=== PATIENT | female | born 1985 | race Caucasian/White ===

== ENCOUNTER 2017-04-09 12:17 | Observation (INO) | payer BC ==
[2017-04-09] MEDS ORDERED: Sodium Chloride 0.9% 10 ML Syringe FLUSH PRN (13:03)
[2017-04-09] MEDS ORDERED: Morphine 2 MG/ML Syringe IVPUSH PRN (13:16)
[2017-04-09] MEDS ORDERED: Ondansetron 4 MG/2 ML SDV IVPUSH PRN (13:17)
[2017-04-09] MEDS ORDERED: Ibuprofen 600 MG Tab PO PRN (13:17)
--- NOTE | 2017-04-09 13:23 | PCM.LDHP ---
L&D History of Present Illness - General Date of Service: 04/09/17 Admit Problem/Dx: Patient Status Order with Admit Dx/Problem 04/09/17 13:03 Patient Status [ADT] Routine Admission Diagnosis/Problem Admission Diagnosis/Problem demise, greater than 22 weeks, antepartum Source of Information: Patient History Limitations: Reports: No Limitations - History of Present Illness Introduction:: Patient is a 32 y/o at 23 5/7 wks who presents with findings of demise. This has been complicated by lumbrosacral myelomenigocele, bilateral club feet, and large cerebral ventriculomegaly. Has seen MFM in regards to these findings. Otherwise has a history of for breech, CHTN, and hypothyroidism. Not noticing any abdominal pain or cramping. No vaginal bleeding - Related Data Allergies/Adverse Reactions: Allergies Allergy/AdvReac Type Severity Reaction Status Date / Time minocycline HCl AdvReac Vomiting Verified 09/28/14 11:28 [From Minocin] Home Medications: Home Meds Ibuprofen [Motrin] 800 mg PO TID PRN 09/28/14 [History] Levothyroxine [Synthroid] 50 mcg PO DAILY 09/28/14 [History] Progesterone,Micronized [Progesterone] 100 mg PO FR 09/28/14 [History] metFORMIN [Glucophage XR] 750 mg PO Q12H 09/28/14 [History] Cephalexin [Keflex] 500 mg PO Q6H #28 capsule 09/29/14 [Rx] Past Medical History Cardiovascular History: Reports: Hypertension [employer] History: Reports: Polycystic Ovaries, : 3 Para: 1 LMP (Approximate): Psychiatric History: Reports: Depression Endocrine/Metabolic History: Reports: Hypothyroidism - Past Surgical History HEENT Surgical History: Reports: Myringotomy w Tube(s), Oral Surgery, Tonsillectomy GI Surgical History: Reports: Cholecystectomy Female Surgical History: Reports: Section Social & Family History - Tobacco Use Smoking Status *Q: Former Smoker Years of Tobacco use: 10 Used Tobacco, but Quit: Yes Month Tobacco Last Used: 2012 - Alcohol Use Alcohol Use History: No Days Per Week of Alcohol Use: 0 - Recreational Drug Use Recreational Drug Use: No H&P Review of Systems - Review of Systems: Review Of Systems: See Below General: Reports: No Symptoms Pulmonary: Reports: No Symptoms Cardiovascular: Reports: No Symptoms Gastrointestinal: Reports: No Symptoms Genitourinary: Reports: No Symptoms Musculoskeletal: Reports: No Symptoms Psychiatric: Reports: Depression L&D Exam - Exam Exam: See Below - Vital Signs Weight: 121.563 kg - OB Specific Contraction Intensity: Irritability Movement: Not Appreciated Heart Tones: Not [place] - Rebolledo Score Rebolledo Score Cervix Position: Posterior Rebolledo Score Consistency: Medium Re[place]o Score Effacement: 0-30% Rebolledo Score Dilation: Closed Rebol[place]o Score 's Station: -3 Rebolledo Score Total: 1 - Exam General: Alert, Oriented, Cooperative Lungs: Clear to Auscultation, Normal Respiratory Effort Cardiovascular: Regular Rate, Regular Rhythm GI/Abdominal Exam: Soft, Non-Tender Genitourinary: Normal external exam Back Exam: Normal Inspection Extremities: Normal Inspection Skin: Warm, Dry, Intact - Problem List (1) 23 weeks gestation of SNOMED Code(s): 93816057 ICD Code: Z3A.23 - 23 WEEKS GESTATION OF Status: Acute Current Visit: Yes (2) myelomeningocele SNOMED Code(s): 506510931 ICD Code: Q05.9 - SPINA BIFIDA, UNSPECIFIED Status: Acute Current Visit: Yes (3) Cerebral ventriculomegaly of fetus SNOMED Code(s): 079843978, 945285647 ICD Code: [id number] - Status: Acute Current Visit: Yes (4) demise SNOMED Code(s): 077259968 ICD Code: TWZ7842 - Status: Acute Current Visit: Yes Problem List Initiated/Reviewed/Updated: Yes Orders Last 24hrs: Active Orders 24 hr Category Date Time Status Patient Status [ADT] Routine ADT 04/09/17 13:03 Ordered Peripheral IV Care [RC] . DIRECTED Care 04/09/17 13:10 Ordered Up ad Heena [RC] ASDIRECTED Care 04/09/17 13:03 Ordered Vaginal Exam [RC] PRN Care 04/09/17 13:03 Ordered Vital Signs [RC] PER UNIT ROUTINE Care 04/09/17 13:03 Ordered OB Ltd 1 or More Fetus [US] Routine Exams 04/09/17 12:58 Ordered Ibuprofen [Motrin] Med 04/09/17 13:17 Ordered 600 mg PO Q6H PRN Misoprostol [Cytotec] Med 04/09/17 13:15 Ordered 400 mcg VAG Q6H Morphine Med 04/09/17 13:16 Ordered 2 mg IVPUSH Q1H PRN Ondansetron [Zofran] Med 04/09/17 13:17 Ordered 4 mg IVPUSH Q8H PRN Sodium Chloride 0.9% [Saline Flush] Med 04/09/17 13:03 Ordered 10 ml FLUSH ASDIRECTED PRN Peripheral IV Insertion Adult [OM.PC] Routine Oth 04/09/17 13:03 Ordered Medication Orders Ibuprofen (Motrin) 600 mg PO Q6H PRN PRN Reason: Pain Misoprostol (Cytotec) 400 mcg VAG Q6H ARSEN[facility] Morphine Sulfate (Morphine) 2 mg IVPUSH Q1H PRN PRN Reason: Pain Ondansetron HCl (Zofran) 4 mg IVPUSH Q8H PRN PRN Reason: Nausea Sodium Chloride (Saline Flush) 10 ml FLUSH ASDIRECTED PRN PRN Reason: Keep Vein Open Assessment/Plan Comment:: 32 y/o at 23 5/7 wks presents for management of demise. Fetus with multiple known abnormalities. * Discussed IOL. Patient does have a history of , but given gestational age less than 28 weeks can be managed with cytotec. Will use Cytotec, 400 mg, q 6 hours. Will plan for buccal cytotec after delivery of baby girl to aid in delivery of placenta. She is aware of risks of if not able to induce vs D&C for retained placenta. * CBC and T&S * Pain management per her preference * Home medications of Zoloft and Synthroid ordered
[2017-04-09] MEDS: Misoprostol 200 MCG Tab VAG SCH ×2 (13:35→19:00)
[2017-04-09] MEDS ORDERED: Bupivacaine 0.25% 10 ML SDV ONE (14:00)
--- NOTE | 2017-04-09 14:44 | US ---
Limited obstetrical ultrasound: Multiple real-time images were obtained. Fetus is cephalic in presentation. Placenta is posterior. DMITRI is 10.5 cm. No heart activity is seen. Measurements correspond to a mean gestational age of 23 weeks 4 days Impression: 1. No heart activity compatible with demise. Diagnostic code #5 (Attending provider present at time of exam)
[2017-04-10] MEDS ORDERED: Promethazine 25 MG/ML SDV IM STA (00:57)
[2017-04-10] MEDS ORDERED: Acetaminophen/oxyCODONE 325-5 MG Tab PO PRN (00:58)
[2017-04-10] MEDS ORDERED: Lactated Ringers 2,000 ML ONE (01:08)
[2017-04-10] MEDS: Misoprostol 200 MCG Tab VAG SCH (01:20)
[2017-04-10] MEDS: Lactated Ringers 1,000 ML IV SCH ×3 (01:22→05:12)
[2017-04-10] MEDS ORDERED: fentaNYL 100 MCG/2 ML SDV EPIDUR PRN (01:28)
[2017-04-10] MEDS ORDERED: diphenhydrAMINE 50 MG/ML SDV IVPUSH PRN (01:28)
[2017-04-10] MEDS ORDERED: ePHEDrine 50 MG/ML SDV IVPUSH PRN (01:28)
[2017-04-10] MEDS ORDERED: Ondansetron 4 MG/2 ML SDV IVPUSH PRN (01:28)
[2017-04-10] MEDS ORDERED: Bupivacaine/fentaNYL/NS 100 ML Bag EPIDUR SCH (01:30)
--- NOTE | 2017-04-10 01:38 | PCM.PREANE ---
Preanesthetic Assessment - Anesthesia/Transfusion/Family Hx Anesthesia History: Prior Anesthesia Without Reaction Family History of Anesthesia Reaction: No Transfusion History: No Prior Transfusion(s) - Review of Systems General: No Symptoms Pulmonary: No Symptoms Cardiovascular: No Symptoms, Other (HTN) Gastrointestinal: Other (GERD) Neurological: No Symptoms Other: Reports: Thyroid Problems, Depression, Anxiety - Physical Assessment NPO Status Date: 04/10/17 NPO Status Time: 01:00 Pulse: 87 O2 Sat by Pulse Oximetry: 99 Respiratory Rate: 16 Blood Pressure: 154/65 Temperature: 36.7 C Vital Signs: Last Vital Signs Temp 36.7 C 04/09/17 20:31 Pulse 87 04/09/17 20:31 Resp 16 04/09/17 20:30 BP 154/65 H 04/09/17 20:31 Pulse Ox 99 04/09/17 20:31 Height: 1.63 m Weight: 121.563 kg ASA Class: 2 Mental Status: Alert & Oriented x3 Dentition: Reports: Normal Dentition ROM/Head Extension: Full Lungs: Clear to Auscultation, Normal Respiratory Effort Cardiovascular: Regular Rate, Regular Rhythm - Lab Values: Laboratory Last Values WBC 15.14 K/mm3 (3.98-10.04) H 04/09/17 14:03 RBC 3.64 M/mm3 (3.98-5.22) L 04/09/17 14:03 Hgb 10.7 gm/L (11.2-15.7) L 04/09/17 14:03 Hct 31.3 % (34.1-44.9) L 04/09/17 14:03 MCV 86.0 fl (79.4-94.8) 04/09/17 14:03 MCH 29.4 pg (25.6-32.2) 04/09/17 14:03 MCHC 34.2 g/dl (32.2-35.5) 04/09/17 14:03 RDW Std Deviation 48.0 fL (36.4-46.3) H 04/09/17 14:03 Plt Count 187 K/mm3 (182-369) 04/09/17 14:03 MPV 8.6 fl (9.4-12.3) L 04/09/17 14:03 Blood Type B POSITIVE 04/09/17 14:03 Gel Antibody Screen Negative 04/09/17 14:03 - Allergies Allergies/Adverse Reactions: Allergies Allergy/AdvReac Type Severity Reaction Status Date / Time minocycline HCl AdvReac Vomiting Verified 09/28/14 11:28 [From Minocin] - Blood Blood Available: No Product(s) Available: None - Anesthesia Plan Pre-Op Medication Ordered: None - Acknowledgements Anesthesia Type Planned: Epidural Pt an Appropriate Candidate for the Planned Anesthesia: Yes Alternatives and Risks of Anesthesia Discussed w Pt/Guardian: Yes Pt/Guardian Understands and Agrees with Anesthesia Plan: Yes PreAnesthesia Questionnaire Cardiovascular History: Reports: Hypertension [employer]RI[employer]ION History: Reports: Polycystic Ovaries, , Spontaneous Psychiatric History: Reports: Depression Endocrine/Metabolic History: Reports: Hypothyroidism - Past Surgical History HEENT Surgical History: Reports: Myringotomy w Tube(s), Oral Surgery, Tonsillectomy GI Surgical History: Reports: Cholecystectomy Female Surgical History: Reports: Section - SUBSTANCE USE Smoking Status *Q: Never Smoker Second Hand Smoke Exposure: No Days Per Week of Alcohol Use: 0 Recreational Drug Use History: No - HOME MEDS Home Medications: Home Meds Labetalol [Normodyne] 100 mg PO BID 04/09/17 [History] Levothyroxine 75 mcg PO ACBREAKFAST 04/09/17 [History] PNV95/Ferrous Fumarate/FA [ Vitamin Tablet] 1 each PO DAILY 04/09/17 [ History] Sertraline [Zoloft] 50 mg PO DAILY 04/09/17 [History] - CURRENT (IN HOUSE) MEDS Current Meds: Current Medications Diphenhydramine HCl (Benadryl) 25 mg IVPUSH Q6H PRN PRN Reason: Pruritis Ephedrine Sulfate (Ephedrine Sulfate) 5 mg IVPUSH ASDIRECTED PRN PRN Reason: Hypotension Fentanyl (Sublimaze) 100 mcg EPIDUR Q3H PRN PRN Reason: Pain Fentanyl/Bupivacaine HCl (Fentanyl/Bupivacaine/Ns 2 Mcg-0.125% 100 Ml) 100 ml EPIDUR ASDIRECTED [facility] Lactated Ringer's (Ringers, Lactated) 1,000 mls @ 125 mls/hr IV ASDIRECTED A[facility] Last Admin: 04/10/17 01:22 Dose: 125 mls/hr Ibuprofen (Motrin) 600 mg PO Q6H PRN PRN Reason: Pain Last Admin: 04/09/17 22:41 Dose: 600 mg Levothyroxine Sodium (Levothyroxine) 75 mcg PO ACBREAKFAST [facility] Misoprostol (Cytotec) 400 mcg VAG Q6H ARSENIO Last Admin: 04/10/17 01:20 Dose: 400 mcg Morphine Sulfate (Morphine) 2 mg IVPUSH Q1H PRN PRN Reason: Pain Last Admin: 04/09/17 22:43 Dose: 2 mg Ondansetron HCl (Zofran) 4 mg IVPUSH Q8H PRN PRN Reason: Nausea Last Admin: 04/09/17 23:48 Dose: 4 mg Ondansetron HCl (Zofran) 4 mg IVPUSH ONETIME PRN PRN Reason: Nausea/Vomiting Oxycodone/Acetaminophen (Percocet 325-5 Mg) 2 tab PO Q4H PRN PRN Reason: Pain Sertraline HCl (Zoloft) 50 mg PO DAILY [facility] Sodium Chloride (Saline Flush) 10 ml FLUSH ASDIRECTED PRN PRN Reason: Keep Vein Open Discontinued Medications Lactated Ringer's (Ringers, Lactated) Confirm Administered Dose 2,000 mls @ as directed .ROUTE .STK-MED ONE Stop: 04/10/17 01:09 Last Admin: 04/10/17 01:23 Dose: Not Given Promethazine HCl (Phenergan) 25 mg IM ONETIME STA Stop: 04/10/17 00:58 Last Admin: 04/10/17 01:20 Dose: 25 mg
--- NOTE | 2017-04-10 02:46 | PCM.SN ---
- Free Text/Narrative Note: 04-10-17 Start 0130 End 0230 Epidural placement for delivery of demise Consent obtained. Chart reviewed. Discussed the epidural process with the patient and spouse and answered any questions. Patient sitting at bedside. Anes time out 0145. Sterile gloves, epidural kid used. Masks worn by everyone in room. Skin cleansed with betadine x3. Sterile plastic drape used. Skin localized with 3cc of 1% lido. DEBRA at 9cm with air x1 attempt at L3-4. Dilated the epidural space with 5cc of saline. Catheter advanced easily, Touhy needle removed. Test dose was negative with 1.5%lido with 1:[id number] epi at 0159. Catheter taped at 15cm at the skin. Patient positioned supine with hob 30deg. 0.25% bupivacaine 10ml incrementally dosed via epidural while monitoring patient and blood pressure. After about 10 min a T6 level was achieved bilaterally. Connected to epidural pump and explained bolus button. Patient much more comfortable and denies feeling contractions. VSS. Patient tolerated procedure well. Lencho Garcia [employer]
--- NOTE | 2017-04-10 03:16 | PCM.SN ---
- Free Text/Narrative Note: 0300 Patient doing well. Comfortable with epidural. SVE showed / BB. AROM done with release of green tinged fluid. Continue present management. Anticipate . Irlanda Hummel MD
[2017-04-10] MEDS ORDERED: Misoprostol 200 MCG Tab ONE (03:35)
--- NOTE | 2017-04-10 03:49 | PCM.DEL ---
L & D Note - General Info Date of Service: 04/10/17 - Delivery Note Cervical Ripening Method: Misoprostil Delivery Outcome: Stillbirth Delivery Method: Spontaneous Vaginal Delivery-Single Infant Delivery Mode: Spontaneous Presentation: Breech Nuchal Cord: None Anesthesia Type: Epidural Episiotomy Type: None Laceration: None Score 1 min: 0 Score 5 min: 0 Delivery Comments (Free Text/Narrative):: Patient quickly went to complete dilation after AROM. Delivery occurred quickly thereafter from breech presentation. Cord clamped and cut. Patient given 600 mcg of buccal cytotec to aid in delivery of placenta. It did expel intact. Inspection of the perineum showed no lacerations. Inspection of baby girl did show clubbing of bilateral lower extremities in additional large, 2 cm, defect of the lower back consistent with known myelomenigocele. - Patient Data Vitals - Most Recent: Last Vital Signs Temp 36.7 C 04/10/17 01:38 Pulse 87 04/10/17 01:38 Resp 16 04/10/17 01:38 BP 154/65 H 04/10/17 01:38 Pulse Ox 99 04/10/17 01:38 Weight - Most Recent: 121.563 kg I&O - Last 24 Hours: Intake & Output 04/09/17 04/09/17 04/10/17 14:59 22:59 06:59 Intake Total 360 Balance 360 Lab Results Last 24 Hours: Laboratory Results - last 24 hr 04/09/17 04/09/17 Range/Units 14:03 14:03 WBC 15.14 H (3.98-10.04) K/mm3 RBC 3.64 L (3.98-5.22) M/mm3 Hgb 10.7 L (11.2-15.7) gm/L Hct 31.3 L (34.1-44.9) % MCV 86.0 (79.4-94.8) fl MCH 29.4 (25.6-32.2) pg MCHC 34.2 (32.2-35.5) g/dl RDW Std Deviation 48.0 H (36.4-46.3) fL Plt Count 187 (182-369) K/mm3 MPV 8.6 L (9.4-12.3) fl Blood Type B POSITIVE Gel Antibody Screen Negative Med Orders - Current: Current Medications Diphenhydramine HCl (Benadryl) 25 mg IVPUSH Q6H PRN PRN Reason: Pruritis Ephedrine Sulfate (Ephedrine Sulfate) 5 mg IVPUSH ASDIRECTED PRN PRN Reason: Hypotension Fentanyl (Sublimaze) 100 mcg EPIDUR Q3H PRN PRN Reason: Pain Last Admin: 04/10/17 02:22 Dose: 100 mcg Fentanyl/Bupivacaine HCl (Fentanyl/Bupivacaine/Ns 2 Mcg-0.125% 100 Ml) 100 ml EPIDUR ASDIRECTED [facility] Last Admin: 04/10/17 02:23 Dose: 100 ml Lactated Ringer's (Ringers, Lactated) 1,000 mls @ 125 mls/hr IV ASDIRECTED [facility] Last Admin: 04/10/17 02:15 Dose: 125 mls/hr Ibuprofen (Motrin) 600 mg PO Q6H PRN PRN Reason: Pain Last Admin: 04/09/17 22:41 Dose: 600 mg Levothyroxine Sodium (Levothyroxine) 75 mcg PO ACBREAKFAST [facility] Misoprostol (Cytotec) 600 mcg PO ONETIME ONE Stop: 04/10/17 04:01 Morphine Sulfate (Morphine) 2 mg IVPUSH Q1H PRN PRN Reason: Pain Last Admin: 04/09/17 22:43 Dose: 2 mg Ondansetron HCl (Zofran) 4 mg IVPUSH Q8H PRN PRN Reason: Nausea Last Admin: 04/09/17 23:48 Dose: 4 mg Ondansetron HCl (Zofran) 4 mg IVPUSH ONETIME PRN PRN Reason: Nausea/Vomiting Oxycodone/Acetaminophen (Percocet 325-5 Mg) 2 tab PO Q4H PRN PRN Reason: Pain Sertraline HCl (Zoloft) 50 mg PO DAILY [facility] Sodium Chloride (Saline Flush) 10 ml FLUSH ASDIRECTED PRN PRN Reason: Keep Vein Open Discontinued Medications Lactated Ringer's (Ringers, Lactated) Confirm Administered Dose 2,000 mls @ as directed .ROUTE .STK-MED ONE Stop: 04/10/17 01:09 Last Admin: 04/10/17 01:23 Dose: Not Given Misoprostol (Cytotec) 400 mcg VAG Q6H [facility] Last Admin: 04/10/17 01:20 Dose: 400 mcg Misoprostol (Cytotec) Confirm Administered Dose 600 mcg .ROUTE .STK-MED ONE Stop: 04/10/17 03:36 Promethazine HCl (Phenergan) 25 mg IM ONETIME STA Stop: 04/10/17 00:58 Last Admin: 04/10/17 01:20 Dose: 25 mg - Problem List & Annotations (1) 23 weeks gestation of SNOMED Code(s): 77440171 Code(s): Z3A.23 - 23 WEEKS GESTATION OF Status: Acute Current Visit: Yes (2) myelomeningocele SNOMED Code(s): 334594174 Code(s): Q05.9 - SPINA BIFIDA, UNSPECIFIED Status: Acute Current Visit: Yes (3) Cerebral ventriculomegaly of fetus SNOMED Code(s): 839123592, 359662849 Code(s): ITP7211 - Status: Acute Current Visit: Yes (4) demise SNOMED Code(s): 668912878 Code(s): GTK8117 - Status: Acute Current Visit: Yes (5) Vaginal delivery SNOMED Code(s): 949493107 Code(s): O80 - ENCOUNTER FOR FULL-TERM UNCOMPLICATED DELIVERY Status: Acute Current Visit: Yes - Problem List Review Problem List Initiated/Reviewed/Updated: Yes - My Orders Last 24 Hours: My Active Orders 04/09/17 13:03 Patient Status [ADT] Routine Up ad Heena [RC] ASDIRECTED Vaginal Exam [RC] PRN Vital Signs [RC] PER UNIT ROUTINE Sodium Chloride 0.9% [Saline Flush] 10 ml FLUSH ASDIRECTED PRN Peripheral IV Insertion Adult [OM.PC] Routine 04/09/17 13:10 Peripheral IV Care [RC] Q2HR 04/09/17 13:16 Morphine 2 mg IVPUSH Q1H PRN 04/09/17 13:17 Ibuprofen [Motrin] 600 mg PO Q6H PRN Ondansetron [Zofran] 4 mg IVPUSH Q8H PRN 04/09/17 Lunch Regular Diet [DIET] 04/10/17 00:58 Acetaminophen/oxyCODONE [Percocet 325-5 MG] 2 tab PO Q4H PRN 04/10/17 01:15 Lactated Ringers [Ringers, Lactated] 1,000 ml IV ASDIRECTED 04/10/17 04:00 Misoprostol [Cytotec] 600 mcg PO ONETIME ONE 04/10/17 08:00 Levothyroxine 75 mcg PO ACBREAKFAST 04/10/17 09:00 Sertraline [Zoloft] 50 mg PO DAILY - Assessment Assessment:: 32 y/o G3 now P1111 PPD#0 from after IOL for demise at 23 5/7 wks - Plan Plan:: * Routine cares * Mementos to be collected on baby * Discharge home later this AM * Will need follow up in clinic in 1-2 weeks for BP check and mood check
[2017-04-10] MEDS ORDERED: Misoprostol 100 MCG Tab PO ONE (04:00)
--- NOTE | 2017-04-10 04:12 | PCM.DCSUM1 ---
Discharge Summary - Discharge Data Discharge Date: 04/10/17 Discharge Disposition: Home, Self-Care 01 Condition: Good - Discharge Diagnosis/Problem(s) (1) 23 weeks gestation of SNOMED Code(s): 35474827 ICD Code: Z3A.23 - 23 WEEKS GESTATION OF Status: Acute Current Visit: Yes (2) myelomeningocele SNOMED Code(s): 212843806 ICD Code: Q05.9 - SPINA BIFIDA, UNSPECIFIED Status: Acute Current Visit: Yes (3) Cerebral ventriculomegaly of fetus SNOMED Code(s): 543629921, 271598674 ICD Code: DCO6159 - Status: Acute Current Visit: Yes (4) demise SNOMED Code(s): 352702816 ICD Code: RDT2512 - Status: Acute Current Visit: Yes (5) Vaginal delivery SNOMED Code(s): 124539321 ICD Code: O80 - ENCOUNTER FOR FULL-TERM UNCOMPLICATED DELIVERY Status: Acute Current Visit: Yes - Patient Summary/Data Complications: None Consults: None Recommended Follow-up Testing/Procedures: Follow up in 1-2 weeks for BP check, mood check, check Hospital Course: Patient is a 32 y/o at 23 5/7 wks who presented with a demise in setting of several known anomalies. Induction process done with cytotec and eventual AROM. She progressed well to complete dilation and underwent an uncomplicated delivery of both her baby girl and placenta. See delivery note for full details. she did well and was discharged home later the same day. - Patient Instructions Diet: Regular Diet as Tolerated Activity: As Tolerated Activity, Other: Pelvic Rest for 6 weeks Driving: May Drive Today Showering/Bathing: May Shower Showering/Bathing, Other: May Bathe Notify Provider of: Fever, Increased Pain, Swelling and Redness, Drainage, Nausea and/or Vomiting - Discharge Plan Home Medications: Home Meds Labetalol [Normodyne] 100 mg PO BID 04/09/17 [History] Levothyroxine 75 mcg PO ACBREAKFAST 04/09/17 [History] PNV95/Ferrous Fumarate/FA [ Vitamin Tablet] 1 each PO DAILY 04/09/17 [ History] Sertraline [Zoloft] 50 mg PO DAILY 04/09/17 [History] Ibuprofen [IJD: Ibuprofen] 600 mg PO Q6H PRN tablet 04/10/17 [Rx] Referrals: Irlanda Hummel MD [Physician] - (1-2 weeks for BP check and check ) - Discharge Summary/Plan Comment DC Time >30 min.: No - Patient Data Vitals - Most Recent: Last Vital Signs Temp 36.7 C 04/10/17 01:38 Pulse 87 04/10/17 01:38 Resp 16 04/10/17 01:38 BP 154/65 H 04/10/17 01:38 Pulse Ox 99 04/10/17 01:38 Weight - Most Recent: 121.563 kg I&O - Last 24 hours: Intake & Output 04/09/17 04/09/17 04/10/17 14:59 22:59 06:59 Intake Total 360 Balance 360 Lab Results - Last 24 hrs: Laboratory Results - last 24 hr 04/09/17 04/09/17 Range/Units 14:03 14:03 WBC 15.14 H (3.98-10.04) K/mm3 RBC 3.64 L (3.98-5.22) M/mm3 Hgb 10.7 L (11.2-15.7) gm/L Hct 31.3 L (34.1-44.9) % MCV 86.0 (79.4-94.8) fl MCH 29.4 (25.6-32.2) pg MCHC 34.2 (32.2-35.5) g/dl RDW Std Deviation 48.0 H (36.4-46.3) fL Plt Count 187 (182-369) K/mm3 MPV 8.6 L (9.4-12.3) fl Blood Type B POSITIVE Gel Antibody Screen Negative Med Orders - Current: Current Medications Diphenhydramine HCl (Benadryl) 25 mg IVPUSH Q6H PRN PRN Reason: Pruritis Ephedrine Sulfate (Ephedrine Sulfate) 5 mg IVPUSH ASDIRECTED PRN PRN Reason: Hypotension Fentanyl (Sublimaze) 100 mcg EPIDUR Q3H PRN PRN Reason: Pain Last Admin: 04/10/17 02:22 Dose: 100 mcg Fentanyl/Bupivacaine HCl (Fentanyl/Bupivacaine/Ns 2 Mcg-0.125% 100 Ml) 100 ml EPIDUR ASDIRECTED A[facility] Last Admin: 04/10/17 02:23 Dose: 100 ml Lactated Ringer's (Ringers, Lactated) 1,000 mls @ 125 mls/hr IV ASDIRECTED [facility] Last Admin: 04/10/17 02:15 Dose: 125 mls/hr Ibuprofen (Motrin) 600 mg PO Q6H PRN PRN Reason: Pain Last Admin: 04/09/17 22:41 Dose: 600 mg Levothyroxine Sodium (Levothyroxine) 75 mcg PO ACBREAKFAST [facility] Morphine Sulfate (Morphine) 2 mg IVPUSH Q1H PRN PRN Reason: Pain Last Admin: 04/09/17 22:43 Dose: 2 mg Ondansetron HCl (Zofran) 4 mg IVPUSH Q8H PRN PRN Reason: Nausea Last Admin: 04/09/17 23:48 Dose: 4 mg Ondansetron HCl (Zofran) 4 mg IVPUSH ONETIME PRN PRN Reason: Nausea/Vomiting Oxycodone/Acetaminophen (Percocet 325-5 Mg) 2 tab PO Q4H PRN PRN Reason: Pain Sertraline HCl (Zoloft) 50 mg PO DAILY [facility] Sodium Chloride (Saline Flush) 10 ml FLUSH ASDIRECTED PRN PRN Reason: Keep Vein Open Discontinued Medications Lactated Ringer's (Ringers, Lactated) Confirm Administered Dose 2,000 mls @ as directed .ROUTE .STK-MED ONE Stop: 04/10/17 01:09 Last Admin: 04/10/17 01:23 Dose: Not Given Misoprostol (Cytotec) 400 mcg VAG Q6H [facility] Last Admin: 04/10/17 01:20 Dose: 400 mcg Misoprostol (Cytotec) Confirm Administered Dose 600 mcg .ROUTE .STK-MED ONE Stop: 04/10/17 03:36 Misoprostol (Cytotec) 600 mcg PO ONETIME ONE Stop: 04/10/17 04:01 Promethazine HCl (Phenergan) 25 mg IM ONETIME STA Stop: 04/10/17 00:58 Last Admin: 04/10/17 01:20 Dose: 25 mg *Q Meaningful Use (DIS) - VTE *Q VTE Criteria *Q: - Stroke *Q Stroke Criteria *Q: - AMI *Q AMI Criteria *Q:
[2017-04-10] MEDS ORDERED: Levothyroxine 75 MCG Tab PO SCH (08:00)
[2017-04-10] MEDS ORDERED: Sertraline 50 MG Tab PO SCH (09:00)
[2017-04-10 14:48] VITALS: BP 136/72
--- NOTE | 2017-04-10 23:42 | PCM48HPAN ---
Post Anesthesia Note - EVALUATION WITHIN 48HRS OF ANESTHETIC Vital Signs in Normal Range: Yes Patient Participated in Evaluation: No (Patient discharged prior to assessment. Doing well according to RN.) Airway Patent: Yes Cardiovascular Function Stable: Yes Hydration Status Stable: Yes Pain Control Satisfactory: Yes Nausea and Vomiting Control Satisfactory: Yes Mental Status Recovered: Yes
== END 2017-04-10 11:45 | disposition home or self-care (01) ==
LOC: JD.OBCHECK 12:17 → JD.OB 13:03
PROVIDERS: ADMIT Obstetrics & Gynecology; ATTEND Obstetrics & Gynecology
PROC: 10E0XZZ Delivery of Products of Conception, External Approach (ICD-10-PCS; principal; 2017-04-10)
DX: O36.4XX0 Maternal care for intrauterine death, not applicable or unspecified (principal); O16.2 Unspecified maternal hypertension, second trimester; O99.282 Endocrine, nutritional and metabolic diseases complicating pregnancy, second trimester; E03.9 Hypothyroidism, unspecified; O35.0XX0 Maternal care for (suspected) central nervous system malformation in fetus, not applicable or unspecified; Q05.9 Spina bifida, unspecified; G93.89 Other specified disorders of brain; Z3A.23 23 weeks gestation of pregnancy; Z37.1 Single stillbirth; Z88.1 Allergy status to other antibiotic agents; Z79.84 Long term (current) use of oral hypoglycemic drugs; Z79.899 Other long term (current) drug therapy; Z90.49 Acquired absence of other specified parts of digestive tract; Z90.89 Acquired absence of other organs; Z98.890 Other specified postprocedural states; Z87.891 Personal history of nicotine dependence
CPT/HCPCS: 36415; 59409; 76815; 85027; 86850; 86900; 86901; 96361; 96372; 96374; 96375; A9270; G0378; J2270; J2405; J2550; J3010; J7120

== ENCOUNTER 2019-06-24 21:11 | Observation (INO) | payer BC ==
[2019-06-24] MEDS ORDERED: Sodium Chloride 0.9% 10 ML Syringe FLUSH PRN (21:31)
[2019-06-24] MEDS ORDERED: HYDROmorphone 0.5 MG/0.5 ML Syringe IVPUSH ONE (21:45)
[2019-06-24] MEDS ORDERED: Ondansetron 4 MG/2 ML SDV IVPUSH ONE (21:45)
[2019-06-24] MEDS ORDERED: Acetaminophen 325 MG Tab PO ONE (21:45)
[2019-06-24] MEDS ORDERED: Sodium Chloride 0.9% 1,000 ML IV ONE ×2 (21:54→23:21)
--- NOTE | 2019-06-24 21:54 | EDM.PDOC ---
ED HPI GENERAL MEDICAL PROBLEM - General Chief Complaint: Abdominal Pain Stated Complaint: shaking and abdominal pain Time Seen by Provider: 06/24/19 21:30 Source of Information: Reports: Patient, RN Notes Reviewed History Limitations: Reports: No Limitations - History of Present Illness INITIAL COMMENTS - FREE TEXT/NARRATIVE: Patient is a 34-year-old female who presents to the ED for the evaluation of sudden onset abdominal pain. She notes that this developed at around 1700 tonight. She characterizes this as severe lower abdominal pain, that is directly by her bellybutton. She states that she also is having some fevers and chills with this. She is having nausea as well, some dry heaves but no actual emesis. Patient notes that the pain does worsen with standing or moving , or any sort of laughing. She has had her gallbladder taken out and states that she has had abdominal issues after the gallbladder had been taken out. She states that her last bowel movement was today at around 8 PM. She further notes a history of PCOS. She denies any sort of chest pain, shortness of breath , any dysuria, urinary frequency or urgency. She notes that her last meal was pizza [place] at around 6 PM tonight. Patient notes that she has had only a C- section and the gallbladder removal for abdominal surgeries. Her primary care provider is Dr. Herrera from [place]. Lower Abdomen Pain Score (Numeric/FACES): 4 - Related Data Allergies Allergy/AdvReac Type Severity Reaction Status Date / Time minocycline HCl AdvReac Vomiting Verified 06/24/19 21:26 [From Minocin] contrast dye Allergy Cannot Uncoded 06/24/19 21:26 Remember Home Meds: Home Meds Levothyroxine 75 mcg PO ACBREAKFAST 04/09/17 [History] Pnv No.95/Ferrous Fum/Folic AC [ Vitamin Tablet] 1 each PO DAILY [History] Sertraline [Zoloft] 100 mg PO DAILY 04/09/17 [History] Ibuprofen [IJD: Ibuprofen] 600 mg PO Q6H PRN tablet 04/10/17 [Rx] Fluticasone Furoate [Arnuity Ellipta] 2 inh INH DAILY 06/24/19 [History] Hydrochlorothiazide [Microzide] 25 mg PO DAILY 06/24/19 [History] Losartan [Cozaar] 100 mg PO DAILY 06/24/19 [History] metFORMIN [Glucophage XR] 750 mg PO DAILY 06/24/19 [History] Past Medical History Cardiovascular History: Reports: Hypertension 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, , 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 Psychiatric History: Reports: Depression Endocrine/Metabolic History: Reports: Hypothyroidism - Past Surgical History HEENT Surgical History: Reports: Myringotomy w Tube(s), Oral Surgery, Tonsillectomy GI Surgical History: Reports: Cholecystectomy Female Surgical History: Reports: Section Social & Family History - Family History Family Medical History: Noncontributory - Tobacco Use Smoking Status *Q: Never Smoker Second Hand Smoke Exposure: No - Caffeine Use Caffeine Use: Reports: None - Recreational Drug Use Recreational Drug Use: No ED ROS GENERAL - Review of Systems Review Of Systems: See Below Constitutional: Reports: Fever, Chills Respiratory: Denies: Shortness of Breath Cardiovascular: Denies: Chest Pain GI/Abdominal: Reports: Abdominal Pain (generalized abd tenderness, but worse pain periumbilical), Nausea. Denies: Constipation, Diarrhea, Vomiting : Denies: Dysuria, Frequency, Urgency ED EXAM, GI/ABD - Physical Exam Exam: See Below Exam Limited By: No Limitations General Appearance: Alert, WD/WN, No Apparent Distress Eyes: Bilateral: Normal Appearance Throat/Mouth: Normal Inspection, Normal Lips, Normal Teeth, Normal Gums, Normal Oropharynx, Normal Voice, No Airway Compromise Head: Atraumatic, Normocephalic Neck: Normal Inspection Respiratory/Chest: No Respiratory Distress, Lungs Clear, Normal Breath Sounds, No Accessory Muscle Use, Chest Non-Tender Cardiovascular: Normal Peripheral Pulses, Regular Rate, Rhythm, No Edema, No Murmur GI/Abdominal Exam: Normal Bowel Sounds, Soft, No Distention, No Mass, Tender ( generalized, but periumbilical pain is worse), Other (diastasis Recti). No: Rigid, Rebound Extremities: Normal Inspection, Normal Capillary Refill Neurological: Alert, Oriented, Normal Cognition, No Motor/Sensory Deficits Psychiatric: Normal Affect, Normal Mood Skin Exam: Warm (warm to touch), Dry, Intact, Normal Color, No Rash Course - Vital Signs Last Recorded V/S: Last Vital Signs Temp 102.6 F H 06/24/19 21:23 Pulse 127 H 06/24/19 21:23 Resp 16 06/24/19 21:23 BP 186/88 H 06/24/19 21:23 Pulse Ox 99 06/24/19 21:23 - Orders/Labs/Meds Orders: Active Orders 24 hr Category Date Time Status Peripheral IV Care [RC] . DIRECTED Care 06/24/19 21:32 Ordered Abdomen Pelvis wo Cont [CT] Stat Exams 06/24/19 21:44 Ordered CULTURE URINE [RM] Routine Lab 06/24/19 22:24 Ordered Sodium Chloride 0.9% [Saline Flush] Med 06/24/19 21:31 Ordered 10 ml FLUSH ASDIRECTED PRN Peripheral IV Insertion Adult [OM.PC] Routine Oth 06/24/19 21:31 Ordered Medication Orders Piperacillin Sod/Tazobactam (Sod 4.5 gm/ Sodium Chloride) 100 mls @ 200 mls/hr IV ONETIME ONE Stop: 06/24/19 23:50 Sodium Chloride (Normal Saline) 1,000 mls @ 100 mls/hr IV ONETIME ONE Stop: 06/25/19 09:20 Sodium Chloride (Saline Flush) 10 ml FLUSH ASDIRECTED PRN PRN Reason: Keep Vein Open Last Admin: 06/24/19 22:15 Dose: 10 ml Labs: Laboratory Tests 06/24/19 06/24/19 06/24/19 Range/Units 21:46 21:46 22:00 WBC 15.44 H (3.98-10.04) K/mm3 RBC 4.60 (3.98-5.22) M/mm3 Hgb 13.0 D (11.2-15.7) gm/dl Hct 37.4 (34.1-44.9) % MCV 81.3 D (79.4-94.8) fl MCH 28.3 (25.6-32.2) pg MCHC 34.8 (32.2-35.5) g/dl RDW Std Deviation 43.8 (36.4-46.3) fL Plt Count 200 (182-369) K/mm3 MPV 8.2 L (9.4-12.3) fl Neutrophils % (Manual) 75 H (40-60) % Band Neutrophils % 2 (0-10) % Lymphocytes % (Manual) 18 L (20-40) % Atypical Lymphs % 0 % Monocytes % (Manual) 4 (2-10) % Eosinophils % (Manual) 1 (0.7-5.8) % Basophils % (Manual) 0 L (0.1-1.2) Hypersegmented Neuts Few Toxic Granulation 1+ slight Platelet Estimate Adequate Plt Morphology Comment Normal RBC Morph Comment Normal Sodium (136-145) mEq/L Potassium (3.5-5.1) mEq/L Chloride (98-107) mEq/L Carbon Dioxide (21-32) mEq/L Anion Gap (5-15) BUN (7-18) mg/dL Creatinine (0.55-1.02) mg/dL Est Cr Clr Drug Dosing mL/min Estimated GFR (MDRD) (>60) mL/min BUN/Creatinine Ratio (14-18) Glucose (74-106) mg/dL Calcium (8.5-10.1) mg/dL Total Bilirubin (0.2-1.0) mg/dL AST (15-37) U/L ALT (14-59) U/L Alkaline Phosphatase (46-116) U/L Total Protein (6.4-8.2) g/dl Albumin (3.4-5.0) g/dl Globulin gm/dL Albumin/Globulin Ratio (1-2) Urine Color Yellow (Yellow) Urine Appearance Clear (Clear) Urine pH 6.0 (5.0-8.0) Ur Specific [place] > or = 1.030 (1.005-1.030) Urine Protein Negative (Negative) Urine Glucose (UA) Negative (Negative) Urine Ketones Negative (Negative) Urine Occult Blood 1+ H (Negative) Urine Nitrite Negative (Negative) Urine Bilirubin Negative (Negative) Urine Urobilinogen 0.2 (0.2-1.0) Ur Leukocyte Esterase Trace H (Negative) Urine RBC 10-20 H (0-5) /hpf Urine WBC 5-10 H (0-5) /hpf Ur Squamous Epith Cells 0-5 (0-5) /hpf Amorphous Sediment Few H (NOT SEEN) /hpf Urine Bacteria Moderate H (FEW) /hpf Urine Mucus Few (FEW) /hpf Urine HCG, Qual Negative (NEGATIVE) 06/24/19 Range/Units 22:00 WBC (3.98-10.04) K/mm3 RBC (3.98-5.22) M/mm3 Hgb (11.2-15.7) gm/dl Hct (34.1-44.9) % MCV (79.4-94.8) fl MCH (25.6-32.2) pg MCHC (32.2-35.5) g/dl RDW Std Deviation (36.4-46.3) fL Plt Count (182-369) K/mm3 MPV (9.4-12.3) fl Neutrophils % (Manual) (40-60) % Band Neutrophils % (0-10) % Lymphocytes % (Manual) (20-40) % Atypical Lymphs % % Monocytes % (Manual) (2-10) % Eosinophils % (Manual) (0.7-5.8) % Basophils % (Manual) (0.1-1.2) Hypersegmented Neuts Toxic Granulation Platelet Estimate Plt Morphology Comment RBC Morph Comment Sodium 142 (136-145) mEq/L Potassium 3.3 L (3.5-5.1) mEq/L Chloride 104 (98-107) mEq/L Carbon Dioxide 27 (21-32) mEq/L Anion Gap 14.3 (5-15) BUN 7 (7-18) mg/dL Creatinine 0.9 (0.55-1.02) mg/dL Est Cr Clr Drug Dosing 76.06 mL/min Estimated GFR (MDRD) > 60 (>60) mL/min BUN/Creatinine Ratio 7.8 L (14-18) Glucose 124 H (74-106) mg/dL Calcium 8.7 (8.5-10.1) mg/dL Total Bilirubin 0.9 (0.2-1.0) mg/dL AST 19 (15-37) U/L ALT 27 (14-59) U/L Alkaline Phosphatase 85 (46-116) U/L Total Protein 7.0 (6.4-8.2) g/dl Albumin 3.7 (3.4-5.0) g/dl Globulin 3.3 gm/dL Albumin/Globulin Ratio 1.1 (1-2) Urine Color (Yellow) Urine Appearance (Clear) Urine pH (5.0-8.0) Ur Specific [place] (1.005-1.030) Urine Protein (Negative) Urine Glucose (UA) (Negative) Urine Ketones (Negative) Urine Occult Blood (Negative) Urine Nitrite (Negative) Urine Bilirubin (Negative) Urine Urobilinogen (0.2-1.0) Ur Leukocyte Esterase (Negative) Urine RBC (0-5) /hpf Urine WBC (0-5) /hpf Ur Squamous Epith Cells (0-5) /hpf Amorphous Sediment (NOT SEEN) /hpf Urine Bacteria (FEW) /hpf Urine Mucus (FEW) /hpf Urine HCG, Qual (NEGATIVE) Meds: Medications Generic Name Dose Route Start Last Admin Trade Name Freq PRN Reason Stop Dose Admin Piperacillin Sod/Tazobactam 100 mls @ 200 mls/hr 06/24/19 23:21 Sod 4.5 gm/ Sodium Chloride IV 06/24/19 23:50 ONETIME ONE Sodium Chloride 1,000 mls @ 100 mls/hr 06/24/19 23:21 Normal Saline IV 06/25/19 09:20 ONETIME ONE Sodium Chloride 10 ml 06/24/19 21:31 06/24/19 22:15 Saline Flush FLUSH 10 ml ASDIRECTED PRN Administration Keep Vein Open Discontinued Medications Generic Name Dose Route Start Last Admin Trade Name Freq PRN Reason Stop Dose Admin Acetaminophen 975 mg 06/24/19 21:45 06/24/19 22:08 Tylenol PO 06/24/19 21:46 975 mg NOW ONE Administration Hydromorphone HCl 0.5 mg 06/24/19 21:45 06/24/19 22:13 Dilaudid IVPUSH 06/24/19 21:46 0.5 mg ONETIME ONE Administration Sodium Chloride 1,000 mls @ 999 mls/hr 06/24/19 21:54 06/24/19 22:12 Normal Saline IV 06/24/19 22:54 999 mls/hr ONETIME ONE Administration Ondansetron HCl 4 mg 06/24/19 21:45 06/24/19 22:08 Zofran IVPUSH 06/24/19 21:46 4 mg ONETIME ONE Administration - Re-Assessments/Exams Free Text/Narrative Re-Assessment/Exam: 06/24/19 21:52 Patient presents to the ED for the evaluation of sudden onset abdominal pain with a fever. I did order IV to be placed with CBC, CMP urinalysis and an hCG for initial management, abdomen pelvis CT will be obtained without contrast, if hCG is negative, the patient states she has had an allergy to contrast dye in the past. 0.5 mg Dilaudid with 4 mg Zofran has been ordered as well as some IVF. 06/24/19 22:25 Patient's labs have resulted, hCG is negative, she will have the CT scan as previously planned. White blood cell count is moderately elevated at 15.44, manual differential is still pending at this time. Urinalysis demonstrates 1+ blood, trace leukocyte Estrace, 10-20 red blood cells, 5-10 white blood cells, and moderate urine bacteria which could suggest a possible UTI. Urine will be sent for culture as well for confirmation and sensitivities. 06/24/19 23:[address] is done without contrast, and demonstrates an appendix that measures up to 7 mm in diameter, slight indistinctness of the appendiceal margins and periappendiceal fat planes. This could suggest early appendicitis. Due to the patient's clinical course, increased white count and clinical presentation. I do suspect the patient has acute appendicitis and I did call Dr. Castillo, and he wishes to place the patient in observation with IV antibiotics overnight he will reassess her situation in the morning for possible appendectomy at this time. He requests IV Zosyn be given with IV fluids. Will write bridge orders to reflect as such should be kept n.p.o. activities ad nestor., she will be given orders for Dilaudid 0.5 mg every 4 hours as needed and IV Zofran 4 mg every 8 hours as needed. Departure - Departure Time of Disposition: 23:25 Disposition: Refer to Observation Condition: Fair Clinical Impression: Appendicitis Qualifiers: Appendicitis type: acute appendicitis Acute appendicitis type: with localized peritonitis Appendicitis gangrene presence: without gangrene Appendicitis perforation presence: without perforation Appendicitis abscess presence: without abscess Qualified Code(s): K35.30 - Acute appendicitis with localized peritonitis, without perforation or gangrene - Discharge Information *PRESCRIPTION DRUG MONITORING PROGRAM REVIEWED*: No *COPY OF PRESCRIPTION DRUG MONITORING REPORT IN PATIENT KIMMY: No Sepsis Event Note - Evaluation Sepsis Screening Result: Possible Sepsis Risk - Focused Exam Vital Signs: Vital Signs Temp Pulse Resp BP Pulse Ox 06/24/19 21:23 102.6 F H 127 H 16 186/88 H 99 Date Exam was Performed: 06/24/19 Time Exam was Performed: 23:27 - My Orders Last 24 Hours: My Active Orders 06/24/19 21:31 Sodium Chloride 0.9% [Saline Flush] 10 ml FLUSH ASDIRECTED PRN Peripheral IV Insertion Adult [OM.PC] Routine 06/24/19 21:32 Peripheral IV Care [RC] . DIRECTED 06/24/19 21:44 Abdomen Pelvis wo Cont [CT] Stat 06/24/19 22:24 CULTURE URINE [RM] Routine - Assessment/Plan Last 24 Hours: My Active Orders 06/24/19 21:31 Sodium Chloride 0.9% [Saline Flush] 10 ml FLUSH ASDIRECTED PRN Peripheral IV Insertion Adult [OM.PC] Routine 06/24/19 21:32 Peripheral IV Care [RC] . DIRECTED 06/24/19 21:44 Abdomen Pelvis wo Cont [CT] Stat 06/24/19 22:24 CULTURE URINE [RM] Routine
[2019-06-24] MEDS ORDERED: Piperacillin/Tazobactam 4.5 GM in Sodium Chloride 0.9% 100 ML IV ONE (23:21)
[2019-06-25] MEDS ORDERED: FLU Vacc QS2019-20(6MOS+)/PF 60 MCG/0.5 ML SYRINGE IM ONE (00:30)
[2019-06-25] MEDS ORDERED: HYDROmorphone 0.5 MG/0.5 ML Syringe IVPUSH PRN ×2 (02:40→11:58)
[2019-06-25] MEDS ORDERED: Ondansetron 4 MG/2 ML SDV IVPUSH PRN ×2 (02:42→11:58)
[2019-06-25] MEDS ORDERED: Sodium Chloride 0.9% 1,000 ML IV SCH (03:45)
[2019-06-25] MEDS ORDERED: Piperacillin/Tazobactam 4.5 GM in Sodium Chloride 0.9% 100 ML IV SCH (08:00)
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
[2019-06-25] MEDS ORDERED: Bupivacaine 0.5%/EPINEPHrine 1:200,000 50 ML MDV ONE (10:03)
[2019-06-25] MEDS ORDERED: Rocuronium 100 MG/10 ML MDV ONE (10:28)
[2019-06-25] MEDS ORDERED: Dexamethasone 4 MG/ML 5 ML MDV ONE (10:28)
[2019-06-25] MEDS ORDERED: Lidocaine 1% 4 ML ONE (10:28)
[2019-06-25] MEDS ORDERED: Ketorolac 30 MG/ML SDV ONE (10:28)
[2019-06-25] MEDS ORDERED: Succinylcholine/Normal Saline 100 MG/5 ML Syringe ONE (10:28)
[2019-06-25] MEDS ORDERED: Ondansetron 4 MG/2 ML SDV ONE (10:28)
[2019-06-25] MEDS ORDERED: Propofol 200 MG/20 ML SDV ONE (10:28)
[2019-06-25] MEDS ORDERED: fentaNYL 100 MCG/2 ML SDV ONE ×2 (10:29→11:17)
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
[2019-06-25] MEDS ORDERED: Heparin Sodium 5,000 Units/ML Vial ONE (11:06)
[2019-06-25] MEDS ORDERED: fentaNYL 100 MCG/2 ML SDV IVPUSH PRN (11:58)
--- NOTE | 2019-06-25 12:00 | PCM.POSTAN ---
POST ANESTHESIA ASSESSMENT - MENTAL STATUS Mental Status: Alert, Oriented - VITAL SIGNS Vital Signs: Last Vital Signs Temp 36.4 C 06/25/19 11:48 Pulse 94 06/25/19 08:17 Resp 13 06/25/19 11:48 BP 137/77 06/25/19 11:48 Pulse Ox 96 06/25/19 11:48 - RESPIRATORY Respiratory Status: Respiratory Rate WNL, Airway Patent, O2 Saturation Stable - CARDIOVASCULAR CV Status: Pulse Rate WNL, Blood Pressure Stable - GASTROINTESTINAL GI Status: No Symptoms - PAIN Pain Score: 0 (somnolent but arousable) - POST OP HYDRATION Hydration Status: Adequate & Stable - OBSERVATIONS Free Text/Narrative:: Routine transfer and handoff to PACU. VSS, SV, CHAPARRO, FAC, CTAB. No concerns at this time.
--- NOTE | 2019-06-25 12:07 | PCM.DCSUM1 ---
Discharge Summary - Hospital Course Free Text/Narrative:: Presented to emergency department with lower abdominal pain, acute onset, first episode, associated with subjective fever, nausea/vomiting, leukocytosis and CT scan without any contrast that was interpreted as showing possible early appendicitis. She was started on zosyn and went to the OR for lapascopic appendectomy. The appendix was removed, although it appeared normal. THere was purulent fluid in the pelvis that was most concentrated around the right ovary, which was enlarged but not ischemic appearing. There was some omental fat adherent to the lower midline anterior abdominal wall. The patient had an uneventful stay in the recovery room post-operatively and was deemed fit for discharge to home. Diagnosis: Stroke: No - Discharge Data Discharge Date: 06/25/19 Discharge Disposition: Home, Self-Care 01 Condition: Stable - Referral to Home Health Primary Care Physician: Shreya Nash MD - Patient Instructions Diet: Heart Healthy Diet Activity: As Tolerated, No Lifting Over 10 Pounds Driving: Do Not Drive Driving, Other: can drive once you stop taking oxycodone Showering/Bathing: May Shower Wound/Incision Care: Keep Operative Site/Wound Site Clean and Dry Notify Provider of: Fever, Increased Pain, Swelling and Redness - Discharge Plan *PRESCRIPTION DRUG MONITORING PROGRAM REVIEWED*: Not Applicable *COPY OF PRESCRIPTION DRUG MONITORING REPORT IN PATIENT KIMMY: Not Applicable Home Medications: Home Meds Levothyroxine 75 mcg PO ACBREAKFAST 04/09/17 [History] Sertraline [Zoloft] 100 mg PO DAILY 04/09/17 [History] Fluticasone Furoate [Arnuity Ellipta] 2 inh INH DAILY 06/24/19 [History] Hydrochlorothiazide [Microzide] 25 mg PO DAILY 06/24/19 [History] Losartan [Cozaar] 100 mg PO DAILY 06/24/19 [History] metFORMIN [Glucophage XR] 750 mg PO DAILY 06/24/19 [History] Oxygen Therapy Mode: Room Air Patient Handouts: Laparoscopic Appendectomy, Adult, Care After Forms: ED Department Discharge Referrals: Shreya Nash MD [Primary Care Provider] - - Discharge Summary/Plan Comment DC Time >30 min.: Yes - Patient Data Vitals - Most Recent: Last Vital Signs Temp 36.4 C 06/25/19 11:48 Pulse 94 06/25/19 08:17 Resp 15 06/25/19 12:00 BP 136/68 06/25/19 12:00 Pulse Ox 95 06/25/19 12:00 Weight - Most Recent: 129.002 kg I&O - Last 24 hours: Intake & Output 06/24/19 06/25/19 06/25/19 22:59 06:59 14:59 Intake Total 737 Output Total 1100 Balance -363 Lab Results - Last 24 hrs: Laboratory Results - last 24 hr 06/24/19 06/24/19 06/24/19 Range/Units 21:46 21:46 22:00 WBC 15.44 H (3.98-10.04) K/mm3 RBC 4.60 (3.98-5.22) M/mm3 Hgb 13.0 D (11.2-15.7) gm/dl Hct 37.4 (34.1-44.9) % MCV 81.3 D (79.4-94.8) fl MCH 28.3 (25.6-32.2) pg MCHC 34.8 (32.2-35.5) g/dl RDW Std Deviation 43.8 (36.4-46.3) fL Plt Count 200 (182-369) K/mm3 MPV 8.2 L (9.4-12.3) fl Neutrophils % (Manual) 75 H (40-60) % Band Neutrophils % 2 (0-10) % Lymphocytes % (Manual) 18 L (20-40) % Atypical Lymphs % 0 % Monocytes % (Manual) 4 (2-10) % Eosinophils % (Manual) 1 (0.7-5.8) % Basophils % (Manual) 0 L (0.1-1.2) Hypersegmented Neuts Few Toxic Granulation 1+ slight Platelet Estimate Adequate Plt Morphology Comment Normal RBC Morph Comment Normal Sodium (136-145) mEq/L Potassium (3.5-5.1) mEq/L Chloride (98-107) mEq/L Carbon Dioxide (21-32) mEq/L Anion Gap (5-15) BUN (7-18) mg/dL Creatinine (0.55-1.02) mg/dL Est Cr Clr Drug Dosing mL/min Estimated GFR (MDRD) (>60) mL/min BUN/Creatinine Ratio (14-18) Glucose (74-106) mg/dL Calcium (8.5-10.1) mg/dL Total Bilirubin (0.2-1.0) mg/dL AST (15-37) U/L ALT (14-59) U/L Alkaline Phosphatase (46-116) U/L Total Protein (6.4-8.2) g/dl Albumin (3.4-5.0) g/dl Globulin gm/dL Albumin/Globulin Ratio (1-2) Urine Color Yellow (Yellow) Urine Appearance Clear (Clear) Urine pH 6.0 (5.0-8.0) Ur Specific [place] > or = 1.030 (1.005-1.030) Urine Protein Negative (Negative) Urine Glucose (UA) Negative (Negative) Urine Ketones Negative (Negative) Urine Occult Blood 1+ H (Negative) Urine Nitrite Negative (Negative) Urine Bilirubin Negative (Negative) Urine Urobilinogen 0.2 (0.2-1.0) Ur Leukocyte Esterase Trace H (Negative) Urine RBC 10-20 H (0-5) /hpf Urine WBC 5-10 H (0-5) /hpf Ur Squamous Epith Cells 0-5 (0-5) /hpf Amorphous Sediment Few H (NOT SEEN) /hpf Urine Bacteria Moderate H (FEW) /hpf Urine Mucus Few (FEW) /hpf Urine HCG, Qual Negative (NEGATIVE) 06/24/19 Range/Units 22:00 WBC (3.98-10.04) K/mm3 RBC (3.98-5.22) M/mm3 Hgb (11.2-15.7) gm/dl Hct (34.1-44.9) % MCV (79.4-94.8) fl MCH (25.6-32.2) pg MCHC (32.2-35.5) g/dl RDW Std Deviation (36.4-46.3) fL Plt Count (182-369) K/mm3 MPV (9.4-12.3) fl Neutrophils % (Manual) (40-60) % Band Neutrophils % (0-10) % Lymphocytes % (Manual) (20-40) % Atypical Lymphs % % Monocytes % (Manual) (2-10) % Eosinophils % (Manual) (0.7-5.8) % Basophils % (Manual) (0.1-1.2) Hypersegmented Neuts Toxic Granulation Platelet Estimate Plt Morphology Comment RBC Morph Comment Sodium 142 (136-145) mEq/L Potassium 3.3 L (3.5-5.1) mEq/L Chloride 104 (98-107) mEq/L Carbon Dioxide 27 (21-32) mEq/L Anion Gap 14.3 (5-15) BUN 7 (7-18) mg/dL Creatinine 0.9 (0.55-1.02) mg/dL Est Cr Clr Drug Dosing 76.06 mL/min Estimated GFR (MDRD) > 60 (>60) mL/min BUN/Creatinine Ratio 7.8 L (14-18) Glucose 124 H (74-106) mg/dL Calcium 8.7 (8.5-10.1) mg/dL Total Bilirubin 0.9 (0.2-1.0) mg/dL AST 19 (15-37) U/L ALT 27 (14-59) U/L Alkaline Phosphatase 85 (46-116) U/L Total Protein 7.0 (6.4-8.2) g/dl Albumin 3.7 (3.4-5.0) g/dl Globulin 3.3 gm/dL Albumin/Globulin Ratio 1.1 (1-2) Urine Color (Yellow) Urine Appearance (Clear) Urine pH (5.0-8.0) Ur Specific [place] (1.005-1.030) Urine Protein (Negative) Urine Glucose (UA) (Negative) Urine Ketones (Negative) Urine Occult Blood (Negative) Urine Nitrite (Negative) Urine Bilirubin (Negative) Urine Urobilinogen (0.2-1.0) Ur Leukocyte Esterase (Negative) Urine RBC (0-5) /hpf Urine WBC (0-5) /hpf Ur Squamous Epith Cells (0-5) /hpf Amorphous Sediment (NOT SEEN) /hpf Urine Bacteria (FEW) /hpf Urine Mucus (FEW) /hpf Urine HCG, Qual (NEGATIVE) Med Orders - Current: Current Medications Fentanyl (Sublimaze) 50 mcg IVPUSH Q5M PRN PRN Reason: Pain Hydromorphone HCl (Dilaudid) 0.5 mg IVPUSH Q4H PRN PRN Reason: Pain (severe 7-10) Last Admin: 06/25/19 06:53 Dose: 0.5 mg Hydromorphone HCl (Dilaudid) 0.5 mg IVPUSH Q10M PRN PRN Reason: Pain (severe 7-10) Sodium Chloride (Normal Saline) 1,000 mls @ 100 mls/hr IV ASDIRECTED ARSENIO Piperacillin Sod/Tazobactam (Sod 4.5 gm/ Sodium Chloride) 100 mls @ 25 mls/hr IV Q8H ARSENIO Last Admin: 06/25/19 08:12 Dose: 25 mls/hr Ondansetron HCl (Zofran) 4 mg IVPUSH Q8H PRN PRN Reason: Other Ondansetron HCl (Zofran) 4 mg IVPUSH ONETIME PRN PRN Reason: Nausea/Vomiting Sodium Chloride (Saline Flush) 10 ml FLUSH ASDIRECTED PRN PRN Reason: Keep Vein Open Last Admin: 06/24/19 22:15 Dose: 10 ml Discontinued Medications Acetaminophen (Tylenol) 975 mg PO NOW ONE Stop: 06/24/19 21:46 Last Admin: 06/24/19 22:08 Dose: 975 mg Bupivacaine HCl/Epinephrine Bitart ([place] 0.5%/Epinephrine 1:200,000) Confirm Administered Dose 50 ml .ROUTE .STK-MED ONE Stop: 06/25/19 10:04 Last Admin: 06/25/19 11:09 Dose: 50 ml Dexamethasone (Dexamethasone) Confirm Administered Dose 20 mg .ROUTE .STK-MED ONE Stop: 06/25/19 10:29 Fentanyl (Sublimaze) Confirm Administered Dose 100 mcg .ROUTE .STK-MED ONE Stop: 06/25/19 10:30 Fentanyl (Sublimaze) Confirm Administered Dose 100 mcg .ROUTE .STK-MED ONE Stop: 06/25/19 11:18 Heparin Sodium (Porcine) (Heparin Sodium) Confirm Administered Dose 5,000 units .ROUTE .STK-MED ONE Stop: 06/25/19 11:07 Hydromorphone HCl (Dilaudid) 0.5 mg IVPUSH ONETIME ONE Stop: 06/24/19 21:46 Last Admin: 06/24/19 22:13 Dose: 0.5 mg Sodium Chloride (Normal Saline) 1,000 mls @ 999 mls/hr IV ONETIME ONE Stop: 06/24/19 22:54 Last Admin: 06/24/19 22:12 Dose: 999 mls/hr Piperacillin Sod/Tazobactam (Sod 4.5 gm/ Sodium Chloride) 100 mls @ 200 mls/hr IV ONETIME ONE Stop: 06/24/19 23:50 Last Admin: 06/24/19 23:29 Dose: 200 mls/hr Sodium Chloride (Normal Saline) 1,000 mls @ 100 mls/hr IV ONETIME ONE Stop: 06/25/19 09:20 Last Admin: 06/24/19 23:28 Dose: 100 mls/hr Lidocaine HCl (Xylocaine-Mpf 1%) Confirm Administered Dose 4 mls @ as directed .ROUTE .STK-MED ONE Stop: 06/25/19 10:29 Influenza Virus Vaccine (Pharmacy To Dose - Influenza Vaccine) 1 each IM ONETIME ONE Stop: 06/25/19 00:16 Influenza Virus Vaccine (Fluzone Quad 1186-1364 Syringe) 60 mcg IM .ONCE ONE Stop: 06/25/19 00:31 Ketorolac Tromethamine (Toradol) Confirm Administered Dose 30 mg .ROUTE .STK- MED ONE Stop: 06/25/19 10:29 Ondansetron HCl (Zofran) 4 mg IVPUSH ONETIME ONE Stop: 06/24/19 21:46 Last Admin: 06/24/19 22:08 Dose: 4 mg Ondansetron HCl (Zofran) Confirm Administered Dose 4 mg .ROUTE .STK-MED ONE Stop: 06/25/19 10:29 Propofol (Diprivan 20 Ml) Confirm Administered Dose 200 mg .ROUTE .STK-MED ONE Stop: 06/25/19 10:29 Rocuronium [place] (Zemuron) Confirm Administered Dose 100 mg .ROUTE .STK-MED ONE Stop: 06/25/19 10:29 Succinylcholine Chloride (Succinylcholine In Ns Pf) Confirm Administered Dose 100 mg .ROUTE .STK-MED ONE Stop: 06/25/19 10:29 Sugammadex Sodium ([place]) Confirm Administered Dose 500 mg .ROUTE .STK-MED ONE Stop: 06/25/19 11:05
--- NOTE | 2019-06-25 12:16 | PCM.PRNOTE ---
- Free Text/Narrative Note: Operative Report Operation: laparoscopic appendectomy Date: 06/25/2019 Attending Surgeon: Nickolas Castillo MD Indication for Surgery: RLQ pain and imaging suggestive of acute appendicitis Post-operative diagnosis: normal appendix, with purulent fluid in pelvis likely from ruptured ovarian cyst. Omental adhesions along lower midline. Preoperative antibiotics: 4.5 g zosyn IV VTE prophylaxis: Heparin 5000 u SC, SCDs Estimated Blood Loss: 5 cc Findings: Minor injury to left lobe of liver on Veress placement; hemostatic without intervention. Purulent, cloudy craig fluid in pelvis around enlarged right ovary. Appendix appeared grossly normal. Some omental adhesions to lower midline. No other abnormality noted; visualized sigmoid colon appeared healthy. Detailed Report: The patient underwent general endotracheal anesthesia after being placed supine on the operating table and initial timeout. The abdomen was prepped and draped in sterile fashion. A pre-incision timeout was performed confirming the patient s identity and the operation to be performed. A Veress needle was inserted into the abdominal cavity below the left costal margin along the mid-clavicular line. The abdomen was insufflated with CO2 to 15 mm Hg. Gas was aspirated below the umbilicus with a syringe in order to ensure safe placement of a 12 mm bladed laparoscopic port. The 5mm 30 degree laparoscope was then inserted and viscera inspected. There was a full thickness injury from the Veress to the left lateral hepatic lobe with minor hemorrhage and no obvious associated hollow viscus injury. The patient was placed in Trendelenburg position with the left side down toward the surgeon, aiding in exposure of the right lower quadrant. A moderate amount of purulent fluid was seen in the pelvis around the right ovary. The appendix appeared normal. Two additional 5 mm ports were placed under direct vision with the laparoscope one along the midline superior to the pubic symphysis and one in the left lower quadrant. The laparoscope was then placed through the left lower quadrant port for optimal visualization. The distal portion of the appendix was grasped with a laparoscopic Stephen clamp and retracted anteriorly and inferiorly. Epiploic fat near the ileocecal junction obscured visualization, and so the fat was removed using the Ligasure. The [place] grasper was used to create a window in the mesoappendix where the appendix was seen coming off the cecum. A 45 mm laparoscopic stapler with white cartridge was used to divide the appendix flush with the base of the cecum. AThe [place] Ligasure was used to divide the mesoappendix. The specimen was then placed in an Endocatch bag and removed through the umbilical port. The dissection field was irrigated and inspected and appeared hemostatic. There appeared to by a lower midline hernia with incarcerated omentum; the omentum was divided with the ligasure flush with the abdominal wall. Abdominal contents were thoroughly irrigated and suctioned. No evidence of focal inflammation or ischemia of any of the pelvic viscera was noted. The larger infraumbilical port was closed at the level of the fascia with vicryl suture using the PMI laparoscopic suture passer. Pneumoperitoneum was then released. All skin incisions were then closed with placement of subcuticular vicryl suture and dressed with dermabond. A total of 10 cc 0.5 % marcaine with epinephrine was used for local anesthesia at the incision sites. The patient tolerated the operation well, was extubated in the operating room and transferred to the PACU for routine post-anesthesia care. Nickolas Castillo MD General Surgery
[2019-06-25 15:13] VITALS: BP 131/75; PULSE 96
--- NOTE | 2019-06-25 17:49 | CT ---
CT abdomen and pelvis Technique: Multiple axial sections were obtained from above the dome of the diaphragm inferiorly through the pubic symphysis. Intravenous and oral contrast has not been given. Comparison: Prior CT abdomen and pelvis exam of 09/28/14. Findings: Visualized lung bases show a pleural-based nodule partially visualized within the left base measuring 8 mm in size. This is stable from prior exam and therefore is felt to be benign. Diffuse fatty infiltration is seen throughout the liver. Spleen is enlarged at 16.2 cm. Spleen measured 15.4 cm in similar measurement plane on prior exam. Adrenal glands show no nodule. Pancreas is within normal limits. Kidneys show no abnormal calcifications. No hydronephrosis is seen. Surgical clips are seen from prior cholecystectomy. Aorta shows no aneurysm. No retroperitoneal adenopathy or mesenteric abnormalities are seen. Appendix is seen which is normal in size. Right ovary measures 5.0 cm in size and left ovary measures 3.9 cm in size. This ovarian prominence is similar to previous exam. Bone window settings were reviewed which show disc space narrowing at L5-S1. Impression: 1. Appendix is normal in size. No findings of appendicitis are definitely appreciated. 2. Severe fatty infiltration within the liver with splenomegaly. Splenomegaly has increased from previous exam. 3. Other findings as noted above which are nonacute. Diagnostic code #3 This report was dictated in [place] Standard Time I agree with preliminary report from [facility], finalized on 06/25/19, 1206 AM Central Time
--- NOTE | 2019-06-26 10:26 | PCM48HPAN ---
Post Anesthesia Note - EVALUATION WITHIN 48HRS OF ANESTHETIC Vital Signs in Normal Range: Yes Patient Participated in Evaluation: Yes Respiratory Function Stable: Yes Airway Patent: Yes Cardiovascular Function Stable: Yes Hydration Status Stable: Yes Pain Control Satisfactory: Yes Nausea and Vomiting Control Satisfactory: Yes Mental Status Recovered: Yes Vital Signs: Last Vital Signs Temp 36.7 C 06/25/19 12:45 Pulse 96 06/25/19 15:02 Resp 14 06/25/19 12:45 BP 131/75 06/25/19 15:02 Pulse Ox 97 06/25/19 15:02 - COMMENTS/OBSERVATIONS Free Text/Narrative:: Patient discharged prior to availability for anesthesia to asses. Patient met all discharge requirements.
== END 2019-06-25 14:59 | disposition home or self-care (01) ==
LOC: JD.ED 21:11 → JD.MS 23:15
PROVIDERS: ADMIT Surgery; ATTEND Surgery
DX: K35.80 Unspecified acute appendicitis (principal); N83.201 Unspecified ovarian cyst, right side; K66.0 Peritoneal adhesions (postprocedural) (postinfection); I10 Essential (primary) hypertension; G43.909 Migraine, unspecified, not intractable, without status migrainosus; F32.9 Major depressive disorder, single episode, unspecified; E03.9 Hypothyroidism, unspecified; E66.9 Obesity, unspecified; Z88.1 Allergy status to other antibiotic agents; Z91.041 Radiographic dye allergy status; Z87.891 Personal history of nicotine dependence; Z79.84 Long term (current) use of oral hypoglycemic drugs; Z79.899 Other long term (current) drug therapy
CPT/HCPCS: 36415; 44970; 74176; 80053; 81001; 81025; 85007; 85027; 87086; 96361; 96365; 96366; 96375; 96376; 99285; A9270; G0378; J0330; J1100; J1170; J1644; J1885; J2001; J2405; J2543; J2704; J3010; J3490; J7030; J7050; 00840; 96374; 99284

== ENCOUNTER 2021-05-30 21:29 | Emergency (ER) | payer BC ==
[2021-05-30 22:36] VITALS: BP 147/83; PULSE 68
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
== END 2021-05-31 | disposition home or self-care (01) ==
LOC: JD.ED 21:29
DX: N93.9 Abnormal uterine and vaginal bleeding, unspecified (principal); I10 Essential (primary) hypertension; E66.9 Obesity, unspecified; Z68.38 Body mass index [BMI] 38.0-38.9, adult; Z88.5 Allergy status to narcotic agent; Z88.1 Allergy status to other antibiotic agents; Z91.041 Radiographic dye allergy status; Z79.899 Other long term (current) drug therapy; Z87.891 Personal history of nicotine dependence
CPT/HCPCS: 36415; 81025; 85014; 85018; 99283; 99284